=== PATIENT | female | born 1965 | race Caucasian/White ===

== ENCOUNTER → 2019-12-28 09:03 | Outpatient (BNVA) | payer SELFPAY | PROVIDERS: Family Provider Nurse Practitioner; PCP Nurse Practitioner; Visit Provider Nurse Practitioner Family | DX: L71.9 Rosacea, unspecified (principal); R53.83 Other fatigue; M32.9 Systemic lupus erythematosus, unspecified | CPT/HCPCS: 84443; 85651 ==

== ENCOUNTER → 2020-03-26 14:00 | Outpatient (BNVA) | payer SELFPAY | PROVIDERS: Family Provider Nurse Practitioner; PCP Nurse Practitioner; Visit Provider Internal Medicine Rheumatology | DX: R76.8 Other specified abnormal immunological findings in serum (principal); Z11.59 Encounter for screening for other viral diseases; Z79.899 Other long term (current) drug therapy; M25.50 Pain in unspecified joint; L40.9 Psoriasis, unspecified | CPT/HCPCS: 36415; 80076; 81001; 82306; 82565; 82570; 84156; 84439; 84443; 85025; 85651; 86140; 86160; 86431; 86480; 86704; 86803; 87340; 99204 ==

== ENCOUNTER → 2020-04-30 10:34 | Outpatient (BNVA) | payer SELFPAY | PROVIDERS: Family Provider Nurse Practitioner; PCP Nurse Practitioner; Visit Provider Internal Medicine Rheumatology | DX: M35.00 Sjogren syndrome, unspecified (principal); Z79.899 Other long term (current) drug therapy; M05.9 Rheumatoid arthritis with rheumatoid factor, unspecified; R76.8 Other specified abnormal immunological findings in serum; R76.0 Raised antibody titer; I73.00 Raynaud's syndrome without gangrene | CPT/HCPCS: 99214 ==

== ENCOUNTER 2020-05-01 14:19 | Outpatient (CLI) | payer SELFPAY ==
--- NOTE | 2020-05-01 14:34 | XR_ITS ---
WS: [id number] XR hand RT min 3V* [id number] REASON FOR EXAM: inflammatory arthritis FINDINGS: The distal interphalangeal joints show mild erosive changes. The phalanges metatarsals and tarsals show no's welling. Normal motion is seen. XR/XR hand RT min 3V* 37501 IMPRESSION: Early erosive changes of the distal interphalangeal joints.
--- NOTE | 2020-05-01 14:34 | XR_ITS ---
WS: [id number] XR foot RT min 3V* 87685 REASON FOR EXAM: inflammatory arthritis FINDINGS: Views of the right foot show normal appearance of the phalanges, metatarsals, and tarsals. The calcaneus appears to be normal. There is no unusual swelling of the foot seen. XR/XR foot RT min 3V* 68100 IMPRESSION: Negative right foot.
--- NOTE | 2020-05-01 14:34 | XR_ITS ---
WS: [id number] XR foot LT min 3V* 17544 REASON FOR EXAM: inflammatory arthritis FINDINGS: There is no unusual swelling of the left foot seen. The phalanges, metatarsals, and tarsals were normal. No evidence of lytic changes or joint swelling i s seen. The calcaneus was normal. XR/XR foot LT min 3V* 23129 IMPRESSION: Negative left foot.
--- NOTE | 2020-05-01 14:34 | XR_ITS ---
WS: [id number] XR hand LT min 3V* 13120 REASON FOR EXAM: inflammatory arthritis FINDINGS: There is no synovial swelling seen in the hand. No destructive changes or swelling of the phalanges, metacarpals, carpals. No destructive changes are seen. XR/XR hand LT min 3V* 13069 IMPRESSION: Negative left hand.
--- NOTE | 2020-05-01 14:34 | XR_ITS ---
WS: [id number] XR chest 2V* 40333 REASON FOR EXAM: inflammatory arthritis FINDINGS: The peripheral lungs are well aerated. No pneumonia, pleural effusion, pulmonary edema, are pneumothorax. The heart and mediastinum were normal. The hilum and apices normal. No osseous abnormalities. XR/XR chest 2V* 32609 IMPRESSION: Negative chest
== END 2020-05-01 14:20 | disposition home or self-care (01) ==
LOC: RADWPI 14:21
PROVIDERS: Family Provider Nurse Practitioner; PCP Nurse Practitioner; Visit Provider Internal Medicine Rheumatology
DX: M19.90 Unspecified osteoarthritis, unspecified site (principal)
CPT/HCPCS: 71046; 73130; 73630

== ENCOUNTER → 2020-05-22 10:08 | Outpatient (BNVA) | payer SELFPAY | PROVIDERS: Family Provider Nurse Practitioner; PCP Nurse Practitioner; Visit Provider Nurse Practitioner Family | DX: Z12.4 Encounter for screening for malignant neoplasm of cervix (principal); Z12.39 Encounter for other screening for malignant neoplasm of breast; Z01.419 Encounter for gynecological examination (general) (routine) without abnormal findings | CPT/HCPCS: 88175 ==

== ENCOUNTER → 2020-06-17 10:51 | Outpatient (BNVA) | payer SELFPAY | PROVIDERS: Family Provider Nurse Practitioner; PCP Nurse Practitioner; Visit Provider Internal Medicine Rheumatology | DX: Z79.899 Other long term (current) drug therapy (principal) | CPT/HCPCS: 36415; 80076; 82565; 85025; 85651; 86140 ==

== ENCOUNTER 2020-07-10 07:56 | Outpatient (CLI) | payer SELFPAY ==
--- NOTE | 2020-07-10 08:03 | MM_ITS ---
WS: [id number] SCREENING DIGITAL MAMMOGRAM WITH CAD HISTORY: SCREENING COMPARISON: None available. Bilateral CC and MLO views submitted. Computer aided detection analyzed. Breast composition: There are scattered areas of fibroglandular density. No suspicious masses, microc alcifications or architectural distortion. MM/[place] [id number] IMPRESSION: BI-RADS: 1-Negative FOLLOW UP: 1 Year Follow-up
== END 2020-07-10 07:57 | disposition home or self-care (01) ==
LOC: RADSHAW 07:59
PROVIDERS: PCP Nurse Practitioner Family; Visit Provider Nurse Practitioner Family
DX: Z12.31 Encounter for screening mammogram for malignant neoplasm of breast (principal)
CPT/HCPCS: 77067

== ENCOUNTER → 2020-07-31 12:58 | Outpatient (BNVA) | payer SELFPAY | PROVIDERS: PCP Nurse Practitioner Family; Visit Provider Internal Medicine Rheumatology | DX: M05.79 Rheumatoid arthritis with rheumatoid factor of multiple sites without organ or systems involvement (principal); Z79.899 Other long term (current) drug therapy; M35.00 Sjogren syndrome, unspecified; R76.8 Other specified abnormal immunological findings in serum; G43.909 Migraine, unspecified, not intractable, without status migrainosus; R47.9 Unspecified speech disturbances; I73.00 Raynaud's syndrome without gangrene | CPT/HCPCS: 36415; 85025; 99214 ==

== ENCOUNTER → 2020-08-28 16:00 | Outpatient (BNVA) | payer BC, SELFPAY | PROVIDERS: PCP Nurse Practitioner Family; Visit Provider Internal Medicine Rheumatology | DX: Z79.899 Other long term (current) drug therapy (principal) | CPT/HCPCS: 36415; 80076; 82565; 85025; 85651; 86140 ==

== ENCOUNTER → 2020-10-23 15:55 | Outpatient (BNVA) | payer BC, SELFPAY | PROVIDERS: PCP Nurse Practitioner Family; Visit Provider Internal Medicine Rheumatology | DX: M05.79 Rheumatoid arthritis with rheumatoid factor of multiple sites without organ or systems involvement (principal); G43.909 Migraine, unspecified, not intractable, without status migrainosus; R76.8 Other specified abnormal immunological findings in serum; R76.0 Raised antibody titer; M35.00 Sjogren syndrome, unspecified; I73.00 Raynaud's syndrome without gangrene; L40.9 Psoriasis, unspecified; Z79.899 Other long term (current) drug therapy | CPT/HCPCS: 99214 ==

== ENCOUNTER 2020-11-22 11:07 | Emergency (ER) | payer BC, SELFPAY ==
[2020-11-22] VITALS (9 sets, daily range): BP systolic 132–174; BP diastolic 71–108; PULSE 72–84; RESP 14–20; TEMP 36.7; O2SAT 98–100; BMI 27.4
--- NOTE | 2020-11-22 13:10 | CT_ITS ---
WS: [id number] CT HEAD NONCONTRAST HISTORY: headache TECHNIQUE: Contiguous axial imaging performed through the brain in 2.5 mm imaging. Bone and soft tiss ue windows. Sagittal and coronal reformats reviewed. All CT scans at [facility] use at ast one of these dose optimization techniques: automated exposure control; mA and/or kV adjustment pe r patient size (includes targeted exams where dose is matched to clinical indication); or iterative r econstruction. DLP: 752.49 mGy.cm COMPARISON: None available. No acute intracranial hemorrhage, midline shift or mass effect. No atrophy or prior infarcts or herniation. Ventricles: Normal size with no hydrocephalus. Paranasal sinuses: As visualized are clear. Mastoid air cells: Well pneumatized. Calvarium and scalp: Skull is intact with no soft tissue edema or swelling. CT/CT head wo con* [id number] IMPRESSION: Negative head CT.
--- NOTE | 2020-11-22 13:10 | XR_ITS ---
WS: [id number] Portable AP upright chest, 11/22/2020 Clinical Data: fatigue Comparison: PA and lateral chest, 05/01/2020 Findings: No nodules, masses or effusions are seen. The heart is normal. The pulmonary vascularity is not increased. No pneumonia or pneumothorax is seen. XR/XR chest 1V portable [id number] Impression: Negative chest.
--- NOTE | 2020-11-22 13:12 | ECG_ITS ---
[facility] Test Date: 2020-11-22 Pat Name: Maris Chavez Department: Room: Gender: Female Optometric Coordinator: : 1965 Requested By: Tico Larsen Order Number: [id number] Gottlieb MD: Roger Alanis M.D. Measurements Intervals [place] Rate: 77 P: 84 WY: 163 QRS: 49 QRSD: 89 T: 65 QT: 355 QTc: 404 Interpretive Statements SINUS RHYTHM No previous ECG available for comparison Electronically Signed On 11-22-2020 17:10:07 CASTING ROOM OPERATOR by Roger Alanis M.D. [id number]
--- NOTE | 2020-11-22 13:12 | W.ED.GENADLT ---
HPI - General Adult General: Chief complaint: General Medical Stated complaint: Weakness/Fatigue/dizziness Time Seen by Provider: 11/22/20 12:56 History of Present Illness: HPI narrative: The patient is a 55-year-old female with past medical history of multiple immunologic disorders and migraines, rheumatoid arthritis, Sjogren's disease, depressions. She comes to the ER today complaining of unusual symptoms at work. Memory loss, confusion, she felt off balance which is unusual for her. She has migraine sometimes with and without aura where she has trouble saying words and was told it could possibly be from the migraine or a TIA. The symptoms she had today were slightly different. Her blood pressure was elevated, she felt off balance and was making mistakes at work. In the ER her symptoms have resolved since her blood pressure has come down while she is sitting in the bed but she would still like to be checked out. Onset (ago): hour(s) (1) Associated symptoms: Deny chest pain, confusion, cough, dyspnea, headache(s), nausea, rash, short of breath, vomiting or weakness Review of Systems General: Reports: 10 or more systems reviewed and unremarkable except in HPI and below Narrative: In the ER she denies any symptoms Const: Denies: fatigue Eyes: Denies: change in vision, blurry vision or eye redness ENMT: Denies: throat pain, swelling of lips/tongue, ear or mastoid pain or nasal congestion Card: Denies: chest pain Resp: Denies: dyspnea GI: Denies: nausea or vomiting : Denies: flank pain, difficulty voiding, urinary frequency or urinary urgency Musc: Denies: neck pain, back pain, extremity pain, joint pain, joint redness, limited range of motion or muscle weakness Skin/Breast: Denies: rash, pruritus, erythema, skin pain or skin tenderness Neuro: Denies: headache(s) or confusion Psych: Denies: anxiety or depression Endo: Denies: polyuria All/Imm: Denies: urticaria, throat swelling or tongue swelling PFSH ED PFSH: Medical History Centromere antibody positive Depression Encounter for screening for other viral diseases Endometriosis High risk medication use Immunization counseling Joint pain Lupus (systemic lupus erythematosus) Migraine hx of Migraine with Aura Positive NEREIDA (antinuclear antibody) Psoriasis Raised antibody titer Seropositive rheumatoid arthritis Seropositive rheumatoid arthritis of multiple sites Sjogren's disease TIA (transient ischemic attack) possible TIA episode Surgical History History of laparoscopy Family History Other Hypertension Denies family history of Rheumatoid arthritis Diabetes Systemic lupus erythematosus (SLE) in adult Lung disease Cancer Stroke Social History Smoking and tobacco status: never smoked Alcohol intake: current Alcohol intake frequency: holidays/special occasions only History of recent travel: No Physical Exam Const: COMMON NORMALS: no acute distress, average body habitus, patient oriented x3, no limitations, healthy appearing, alert and well nourished GENERAL APPEARANCE: cooperative, comfortable, well kempt and well developed ORIENTATION/CONSCIOUSNESS: Yes awake, Yes oriented to person, Yes oriented to place and Yes oriented to time HENMT: COMMON NORMALS: normocephalic, external ears normal and Normal external nose present HEAD & SCALP: normal to inspection and normocephalic NOSE: Normal external nose present EXTERNAL EAR: Yes external ears normal MOUTH: Normal oral and palatal mucosa present THROAT: posterior oropharynx normal Eye: COMMON NORMALS: Equal, round and reactive pupils present and EOMs intact bilaterally GENERAL EYE: appearance normal, both eyes and all related structures PUPIL: Yes Equal, round and reactive pupils present Neck/C-Spine: COMMON NORMALS: full ROM, no lymphadenopathy, no meningeal signs and no JVD GENERAL: Yes normal visual inspection Lymph: LYMPHATIC: no lymphadenopathy noted Chest: COMMONS NORMALS: normal inspection of the chest and normal palpation of entire chest wall Resp: COMMON NORMALS: normal respiratory effort, No retractions, No use of accessory muscles, clear to auscultation bilaterally and percussion normal EFFORT & INSPECTION: Yes able to speak in complete sentences AUSCULTATION: clear to auscultation bilaterally PERCUSSION: percussion normal Cardio: COMMON NORMALS: no JVD, regular rate, regular rhythm, S1 normal heart sound present, S2 normal heart sound present and Peripheral pulses 2+ throughout RATE: regular rate RHYTHM: regular rhythm HEART SOUNDS: S1 normal heart sound present and S2 normal heart sound present PERIPHERAL PULSES: Peripheral pulses 2+ throughout GI: COMMON NORMALS: Normal to inspection, nondistended, normoactive bowel sounds present, Soft to palpation, non-tender and no masses INSPECTION: Yes normal to inspection PALPATION: Yes Soft to palpation : COMMON NORMALS: Yes no CVA tenderness BLADDER/KIDNEY EXAM: Yes no CVA tenderness Back/Pelvis: COMMON NORMALS: no CVA tenderness, thoracic and lumbar spine normal to inspection, no thoracic nor lumbar tenderness and thoraco-lumbar ROM normal Extremity: COMMON NORMALS: normal to inspection, full ROM, capillary refill normal, no joint enlargement and no pedal edema GENERAL: Yes normal exam except as noted Neuro: COMMON NORMALS: patient oriented x3, CN's II-XII intact bilaterally, moves all extremities, no focal motor deficits, no sensory deficits noted and gait normal SENSORIUM/ORIENTATION: Yes alert, Yes oriented to person, Yes oriented to place and Yes oriented to time MENINGEAL SIGNS: Yes no meningeal signs Psych: COMMON NORMALS: mental status grossly normal, Normal thought process present, cooperative, normal affect and speech normal APPEARANCE: Yes well kempt ATTITUDE: Yes calm SPEECH: Yes normal speech THOUGHT PROCESS: Normal thought process present Skin: COMMON NORMALS: no rashes or lesions noted GENERAL SKIN EXAM: no rashes or lesions noted Course Vital Signs: Vital signs: Vital Signs Temperature 98.1 F 11/22/20 11:18 Pulse Rate 73 11/22/20 13:54 Respiratory Rate 14 11/22/20 13:54 Blood Pressure 138/86 11/22/20 13:54 Pulse Oximetry 98 11/22/20 13:54 MDM - General Adult MDM Narrative: Medical decision making narrative: The cause of her symptoms is unclear but they have resolved when she arrived to the ER. It is possibly related to her 0 carb diet versus migraine versus other neurologic component. We will add a case management referral for a neurology outpatient follow-up. She is to return to the ER with worsening of symptoms and follow-up with primary care physician as well in a week. Differential Diagnosis: Differential Diagnosis: stroke, migraine, fatigue, other Lab Data: Labs: Lab Results 11/22/20 11/22/20 11/22/20 Range/Units 13:00 14:00 14:00 WBC 3.6 L (4.0-10.0) 10^3/ uL RBC 4.89 (4.1-5.3) 10^6/u L Hgb 14.7 (11.5-15.3) g/dL Hct 43.6 (37.0-47.0) % MCV 89.2 (81-99) fL MCH 30.1 (28.0-34.0) pg MCHC 33.7 (30.0-36.0) g/dL RDW 13.3 (12.1-15.1) % Plt Count 174 (130-400) 10^3/c mm MPV 11.4 H (7.4-10.4) fL Neut % (Auto) 55.5 % Lymph % (Auto) 33.5 % [place] % (Auto) 8.1 % Eos % (Auto) 2.0 % Baso % (Auto) 0.6 % Neut # (Auto) 1.99 (1.8-7.7) 10^3/u L Lymph # (Auto) 1.2 (0.8-4.8) 10^3/u L [place] # (Auto) 0.3 (0.2-0.9) 10^3/u L Eos # (Auto) 0.1 (0.0-0.8) 10^3/u L Baso # (Auto) 0.0 (0.0-0.1) 10^3/u L Nucleated RBC % (a uto) 0 % Nucleated RBCs # 0.0 /100WBC Sodium 139 (136-145) mmol/L Potassium 3.8 (3.5-5.1) mmol/L Chloride 103 (98-107) mmol/L Carbon Dioxide 21 L (22-29) mmol/L Anion Gap 18.8 (5-19) BUN 10 (6-20) mg/dL Creatinine 0.6 (0.5-0.9) mg/dL GFR Calculation 104.6 (90-130) mL/min Glucose 69 (65-115) mg/dL Calculated Osmolal ity 285 (285-295) mOsm/k g Calcium 9.2 (8.5-10.5) mg/dL Total Bilirubin 0.2 (0.15-1.2) mg/dL AST 19 (0-32) U/L ALT 17 (0-33) U/L Alkaline Phosphata se 93 (35-105) IU/L Troponin T Baselin e (0-10) ng/L Total Protein 7.3 (6.6-8.7) g/dL Albumin 4.0 (3.5-5.2) g/dL Globulin 3.3 (1.3-4.6) g/dL Urine Color Straw (Yellow) Urine Appearance Clear (CLEAR) Urine pH 5 (5-7) Ur Specific Gravit y 1.010 (1.005-1.030) Urine Protein Neg (Negative) Urine Glucose (UA) Norm (Normal) Urine Ketones 2+ H (Negative) Urine Blood Neg (Negative) Urine Nitrate Negative (Negative) Urine Bilirubin Neg (Negative) Urine Urobilinogen Norm (Negative) mg/dL Ur Leukocyte Kelly ase Negative (Negative) 11/22/20 Range/Units 14:00 WBC (4.0-10.0) 10^3/ uL RBC (4.1-5.3) 10^6/u L Hgb (11.5-15.3) g/dL Hct (37.0-47.0) % MCV (81-99) fL MCH (28.0-34.0) pg MCHC (30.0-36.0) g/dL RDW (12.1-15.1) % Plt Count (130-400) 10^3/c mm MPV (7.4-10.4) fL Neut % (Auto) % Lymph % (Auto) % [place] % (Auto) % Eos % (Auto) % Baso % (Auto) % Neut # (Auto) (1.8-7.7) 10^3/u L Lymph # (Auto) (0.8-4.8) 10^3/u L [place] # (Auto) (0.2-0.9) 10^3/u L Eos # (Auto) (0.0-0.8) 10^3/u L Baso # (Auto) (0.0-0.1) 10^3/u L Nucleated RBC % (a uto) % Nucleated RBCs # /100WBC Sodium (136-145) mmol/L Potassium (3.5-5.1) mmol/L Chloride (98-107) mmol/L Carbon Dioxide (22-29) mmol/L Anion Gap (5-19) BUN (6-20) mg/dL Creatinine (0.5-0.9) mg/dL GFR Calculation (90-130) mL/min Glucose (65-115) mg/dL Calculated Osmolal ity (285-295) mOsm/k g Calcium (8.5-10.5) mg/dL Total Bilirubin (0.15-1.2) mg/dL AST (0-32) U/L ALT (0-33) U/L Alkaline Phosphata se (35-105) IU/L Troponin T Baselin e 8 (0-10) ng/L Total Protein (6.6-8.7) g/dL Albumin (3.5-5.2) g/dL Globulin (1.3-4.6) g/dL Urine Color (Yellow) Urine Appearance (CLEAR) Urine pH (5-7) Ur Specific Gravit y (1.005-1.030) Urine Protein (Negative) Urine Glucose (UA) (Normal) Urine Ketones (Negative) Urine Blood (Negative) Urine Nitrate (Negative) Urine Bilirubin (Negative) Urine Urobilinogen (Negative) mg/dL Ur Leukocyte Kelly ase (Negative) Discharge Plan Discharge Patient Disposition: Home Clinical Impression: Fatigue Qualifiers: Fatigue type: unspecified Qualified Code(s): R53.83 - Other fatigue Condition: Stable Prescriptions: No Action estradiol 2 mg tablet 2 mg PO DAILY@2099 RF: 0 progesterone micronized 200 mg capsule 400 mg PO DAILY@2099 RF: 0 testosterone 50 mg/5 gram (1 %) gel 1 packet TRANSDERMA DAILY@2099 RF: 0 hydrocortisone 2.5 % cream 1 applic TOPICAL BID PRN (Reason: skin irritation) Qty: 30 RF: 2 prednisone 10 mg tablet See Rx Instructions PO .COMPLEX PRN (Reason: joint pain) Qty: 30 RF: 1 MANAGER [employer]PORATE [employer]ATEGY Thyroid 120 mg tablet 120 mg PO DAILY@0500 RF: 0 methotrexate sodium 2.5 mg tablet 10 mg PO Q7D RF: 0 folic acid 1 mg tablet 1 mg PO DAILY@0700 RF: 0 Finacea 15 % gel 1 applic TOPICAL BID@0700,1900 RF: 0 Mthfr 1 tab PO DAILY@0700 RF: 0 [place] 3 1 tab PO DAILY@0700 RF: 0 Probiotic 1 tab PO DAILY@0700 RF: 0 Vitamin D3 1 tab PO DAILY@0700 RF: 0 biotin 1 tab PO DAILY@0700 RF: 0 niacin 1 tab PO DAILY@0700 RF: 0 Discharge Orders: Discharge ED (Routine); Ordered 11/22/20 Ordered By: Tico Larsen Referrals: Tosin Pham FNP [Primary Care Provider] - Discharge Diet: Usual diet Discharge Activity: Increase activity as tolerated Patient Instructions: Fatigue (ED) Activity Restrictions/Additional Instructions: The cause of your symptoms is unclear though it is possibly related to your diet, and headache problems you have been having. I placed a case management referral to have you see a neurologist and please follow-up with them in a week or so. Return to the ER with worsening symptoms. Coding Level of Care Code ED Photonics Engineering Technologist for Patsy Fwd Exam Comprehensive
[2020-11-22 13:44] LABS: Add Urine Microscopic? NO
[2020-11-22 13:51] LABS: Bilirubin Urine Neg (Negative); Blood Urine Neg (Negative); Glucose Urine UA Norm (Normal); Ketones Urine 2+ (Negative); Leukocyte Esterase Urine Negative (Negative); Nitrate Urine Negative (Negative); Protein Urine Neg (Negative); Urine Appearance Clear (CLEAR); Urine Color Straw (Yellow); Urobilinogen Urine Norm (Negative); pH Urine 5 (5-7)
[2020-11-22 14:49] LABS: Basophils % 0.6 %; Eosinophils # 0.1 10^3/uL (0.0-0.8); Hematocrit 43.6 % (37.0-47.0); Hemoglobin 14.7 g/dL (11.5-15.3); Lymphocytes # 1.2 10^3/uL (0.8-4.8); Lymphocytes % 33.5 %; Mean Corpuscular HGB Conc 33.7 g/dL (30.0-36.0); Mean Corpuscular Hemoglobin 30.1 pg (28.0-34.0); Mean Corpuscular Volume 89.2 fL (81-99); Mean Platelet Volume 11.4 fL (7.4-10.4); Monocytes # 0.3 10^3/uL (0.2-0.9); Monocytes % 8.1 %; Neutrophils # 1.99 10^3/uL (1.8-7.7); Neutrophils % 55.5 %; Nucleated Red Blood Cells % 0 %; Platelet Count 174 10^3/cmm (130-400); Red Blood Count 4.89 10^6/uL (4.1-5.3); Red Cell Distribution Width 13.3 % (12.1-15.1); White Blood Count 3.6 10^3/uL (4.0-10.0)
[2020-11-22 15:07] LABS: Alanine Aminotransferase 17 U/L (0-33); Alkaline Phosphatase 93 IU/L (35-105); Anion Gap 18.8 (5-19); Aspartate Amino Transferase 19 U/L (0-32); Blood Urea Nitrogen 10 mg/dL (6-20); Calcium 9.2 mg/dL (8.5-10.5); Carbon Dioxide 21 mmol/L (22-29); Chloride 103 mmol/L (98-107); Globulin 3.3 g/dL (1.3-4.6); Glomerular Filtration Rate 104.6 mL/min (90-130); Glucose 69 mg/dL (65-115); Osmolality Calculated 285 mOsm/kg (285-295); Potassium 3.8 mmol/L (3.5-5.1); Sodium 139 mmol/L (136-145); Total Bilirubin 0.2 mg/dL (0.15-1.2); Total Protein 7.3 g/dL (6.6-8.7)
[2020-11-22 15:09] LABS: Troponin(5th) Baseline 8 ng/L (0-10)
--- NOTE | 2020-11-25 16:01 | DCPLANNER ---
manager order had message to schedule a follow up appointment for patient with Dr. Martin office. manager order called the office of Dr. Kumar, spoke with Jonna, a followup appointment was scheduled for November at 3:[address] Kumar. manager order called patient and gave patient the appointment information.
--- NOTE | 2020-12-19 13:36 | DCPLANNER ---
Patient had a follow up appointment scheduled for 12.12.[address] Kumar - patient did attend appointment.
== END 2020-11-22 15:49 | disposition home or self-care (01) ==
PROVIDERS: Emergency Provider Family Medicine; PCP Nurse Practitioner Family
DX: R53.83 Other fatigue (principal); M32.9 Systemic lupus erythematosus, unspecified; Z86.73 Personal history of transient ischemic attack (TIA), and cerebral infarction without residual deficits
CPT/HCPCS: 12345; 70450; 71045; 80053; 81003; 84484; 85025; 93005; 99283

== ENCOUNTER → 2020-12-12 14:49 | Outpatient (BNVA) | payer BC, SELFPAY | PROVIDERS: PCP Nurse Practitioner Family; Referring Provider Family Medicine; Visit Provider Specialist | DX: G43.109 Migraine with aura, not intractable, without status migrainosus (principal); R56.9 Unspecified convulsions; Z86.73 Personal history of transient ischemic attack (TIA), and cerebral infarction without residual deficits; M05.79 Rheumatoid arthritis with rheumatoid factor of multiple sites without organ or systems involvement; Z79.890 Hormone replacement therapy | CPT/HCPCS: 99205 ==

== ENCOUNTER 2021-01-03 07:45 | Outpatient (CLI) | payer BC, SELFPAY ==
--- NOTE | 2021-01-03 07:57 | MR_ITS ---
WS: [id number] MRA HEAD TECHNIQUE: Axial 3-D TOF images obtained with axial images and axial, sagittal, and coronal 2-D refor matted images. CLINICAL INFORMATION: G45.9 - Transient cerebral ischemic attack, unspecified COMPARISON: None. FINDINGS: Distal vertebral arteries are patent. Basilar artery is patent. Normal vascularity to the IMPLEMENT[employer]IST [employer]RO[employer] territo ry bilaterally. Both ICAs are patent at the skull base. Normal vascularity to the [place] and MCA territories bilaterally . No evidence of high-grade proximal stenosis or aneurysm. MR/MR angio head wo con [id number] IMPRESSION: Normal intracranial MRA
--- NOTE | 2021-01-03 07:57 | MR_ITS ---
WS: [id number] MRI HEAD WITHOUT CONTRAST TECHNIQUE: Sagittal T1, T2 axial, T2 axial FLAIR, axial and coronal T1 images, axial susceptibility w eighted imaging, axial diffusion weighted images, and coronal T2 images were obtained. CLINICAL INFORMATION: G45.9 - Transient cerebral ischemic attack, unspecified COMPARISON: None. FINDINGS: No evidence of restricted diffusion to suggest acute ischemia. Ventricular system and basal cisterns are patent. A few small foci of T2 hyperintensity in the subcortical white matter can be seen with mi graine headaches. No significant parenchymal volume loss. Normal posterior fossa. Normal vascular flower w voids at the skull base. No extra-axial fluid collections. No evidence of mass or mass effect. Mild mucosal thickening in the paranasal sinuses. Fluid within left maxillary sinus. Mastoid air cell s are well aerated. Normal optic chiasm and pituitary infundibulum. Temporal lobes and hippocampal formations are normal in appearance. No hemosiderin on susceptibly weighted images. MR/MR head wo con* [id number] IMPRESSION: 1. No evidence of restricted diffusion to suggest acute ischemia. 2. A few small foci of T2 hyperintensity in the subcortical white matter can b e seen with migraine headaches. 3. No significant parenchymal volume loss. 4. No hemosiderin on susceptibly weighted images. 5. Mild mucosal thickening in the paranasal sinuses with left maxillary sinusi tis and air-fluid level.
== END 2021-01-03 07:46 | disposition home or self-care (01) ==
LOC: RADWPI 07:55
PROVIDERS: PCP Nurse Practitioner Family; Visit Provider Specialist
DX: G45.9 Transient cerebral ischemic attack, unspecified (principal)
CPT/HCPCS: 70544; 70551

== ENCOUNTER → 2021-03-03 12:09 | Outpatient (BNVA) | payer BC, SELFPAY | PROVIDERS: PCP Nurse Practitioner Family; Visit Provider Internal Medicine Rheumatology | DX: M05.79 Rheumatoid arthritis with rheumatoid factor of multiple sites without organ or systems involvement (principal); Z79.899 Other long term (current) drug therapy; M19.90 Unspecified osteoarthritis, unspecified site; M05.9 Rheumatoid arthritis with rheumatoid factor, unspecified; M35.00 Sjogren syndrome, unspecified; R76.8 Other specified abnormal immunological findings in serum | CPT/HCPCS: 36415; 80076; 82565; 85025; 86140 ==

== ENCOUNTER → 2021-03-11 15:35 | Outpatient (BNVA) | payer BC, SELFPAY | PROVIDERS: PCP Nurse Practitioner Family; Visit Provider Internal Medicine Rheumatology | DX: R76.8 Other specified abnormal immunological findings in serum (principal); M05.79 Rheumatoid arthritis with rheumatoid factor of multiple sites without organ or systems involvement; L40.9 Psoriasis, unspecified; M35.00 Sjogren syndrome, unspecified; I73.00 Raynaud's syndrome without gangrene | CPT/HCPCS: 99214 ==

== ENCOUNTER 2021-05-07 11:32 | Outpatient (CLI) | payer BC, SELFPAY ==
[2021-05-07] MEDS: iohexol 300 mg/mL 50 mL Btl PO (12:04)
--- NOTE | 2021-05-07 13:00 | CT_ITS ---
WS: [id number] CT ABDOMEN AND PELVIS WITH CONTRAST HISTORY: R10.9 - Unspecified abdominal pain TECHNIQUE: Imaging performed of the abdomen and pelvis with IV contrast. Single phase imaging of the abdomen. Coronal and sagittal reformats are submitted. All CT scans at [facility] use at least one of these dose optimization techniques: automated exposure control; mA and/or kV adjustment per patient size (includes targeted exams where dose is matched to clinical indication); or iterativ e reconstruction. IV CONTRAST: Omnipaque 300; 95 mL IV. Oral contrast: Yes. DLP: 1174.97 mGycm COMPARISON: None available. Lower thorax: Lung bases are clear. Heart is normal size. Small hiatal hernia. Liver/biliary system: Normal size with no intrahepatic dilatation. Gallbladder: Normal. No gallstones or wall thickening. No pericholecystic fluid. Pancreas: Normal size pancreas and pancreatic duct. No adjacent inflammation. Spleen: Normal size spleen. No mass or infarct. Adjacent splenule. Adrenal glands: Normal. Right kidney: Normal. Left kidney: Normal. Aorta: Minimal atherosclerosis. No aneurysm. Lymphadenopathy: There are several small shoddy but normal-appearing lymph nodes otherwise in the ret roperitoneum at the level of the renal arteries. There are a few central mesenteric lymph nodes. Free fluid: None. GI tract: Mild constipation. The appendix is normal. No significant diverticular disease. No inflamma tion surrounding the colon. No small bowel obstruction. Very slight distention of small bowel loops i n the LEFT upper abdomen but this may be related to peristalsis. Cannot further evaluate without tian tional oral contrast. There is very small amount of oral contrast within the proximal small bowel. Mi ld enhancement of the vasa recta in the central abdomen. Abdominal wall: Small umbilical hernia contains fat only. Pelvis: No free fluid or adenopathy within the pelvis. Normal-appearing midline uterus. No pelvic mas ses. Bones: Unremarkable. CT/CT abdomen pelvis w con* [id number] IMPRESSION: 1. Numerous small mesenteric and retroperitoneal lymph nodes. May be due to me senteric adenitis or mild inflammatory process within the abdomen. 2. No free fluid or mass identified otherwise. 3. Normal gallbladder. No renal obstruction. 4. Normal appendix.
[2021-05-07] MEDS: iohexol 300 mg/mL 100 mL Btl IV (13:13)
== END 2021-05-07 11:33 | disposition home or self-care (01) ==
PROVIDERS: PCP Nurse Practitioner Family; Visit Provider Nurse Practitioner Family
DX: R10.9 Unspecified abdominal pain (principal)
CPT/HCPCS: 74177; Q9967

== ENCOUNTER → 2021-06-24 15:33 | Outpatient (BNVA) | payer BC, SELFPAY | PROVIDERS: PCP Nurse Practitioner Family; Visit Provider Internal Medicine Rheumatology | DX: R76.8 Other specified abnormal immunological findings in serum (principal); M05.79 Rheumatoid arthritis with rheumatoid factor of multiple sites without organ or systems involvement; L40.9 Psoriasis, unspecified; I73.00 Raynaud's syndrome without gangrene; M35.00 Sjogren syndrome, unspecified; G43.109 Migraine with aura, not intractable, without status migrainosus | CPT/HCPCS: 99213; 99214 ==

== ENCOUNTER 2024-11-27 09:56 | Outpatient (CLI) | payer OTHER, SELFPAY ==
--- NOTE | 2024-11-27 10:02 | US_ITS ---
WS: [id number] Complete ABDOMINAL ULTRASOUND HISTORY: RUQ AND LUQ PAIN COMPARISON: None available. Liver: 19.1 cm in length. Moderate enlargement with diffuse moderate to severe hepatic steatosis. Coa rse echotexture with increased echogenicity and attenuation. No mass identified. Portal Vein: Normal hepatopetal flow with monophasic waveform. Gallbladder: Abnormal gallbladder. There is a lot of shadowing from the gallbladder fossa with very l ittle lumen identified. No wall thickening. CBD: 0.5 cm Pancreas: Limited visualization. Head and tail are not visualized. Body appears normal. Right kidney: 11.7 cm x 5.9 x 4.8 cm. Cortex:1.1 cm. Normal size and echogenicity. No hydronephrosis or mass. Left kidney: 11.0 cm x 4.8 cm x 4.2 cm. Cortex: 1.0 cm. Normal size and echogenicity. No hydronephrosis or mass. Spleen: 11.3 cm. Normal size and echogenicity. Small splenule noted between the spleen and LEFT kid adelfo. Also noted on a prior CT. Aorta and IVC: Unremarkable abdominal aorta and IVC. US/US abdomen complete* [id number] Impression: 1. Abnormal gallbladder. Stone filled gallbladder with a large amount of shado wing. Very little bowel distended lumen identified. 2. Normal common bile duct. 3. No renal obstruction. 4. Moderate hepatic steatosis and hepatomegaly.
== END 2024-11-27 09:57 | disposition home or self-care (01) ==
LOC: RAD 10:00
PROVIDERS: PCP Nurse Practitioner; Visit Provider Nurse Practitioner
DX: R16.0 Hepatomegaly, not elsewhere classified (principal); K76.0 Fatty (change of) liver, not elsewhere classified; R93.3 Abnormal findings on diagnostic imaging of other parts of digestive tract; R93.89 Abnormal findings on diagnostic imaging of other specified body structures
CPT/HCPCS: 76700